=== PATIENT | female | born 1995 | race Caucasian/White ===

== ENCOUNTER 2018-07-11 20:11 | Emergency (ER) | payer SELFPAY ==
[~2018-07-11] VITALS: Ht 160 cm; Wt 77.1 kg
[~2018-07-11 20:11] MED LIST: METR500T PO; SULF1TAB24 PO
[2018-07-11 23:10] LABS: BILIRUBIN,URINE NEGATIVE (NEG); CLARITY,URINE CLEAR; COLOR,URINE YELLOW; NITRITE,URINE NEGATIVE (NEG); PH,URINE 5.5; PROTEIN,URINE NEGATIVE (NEG-TRACE); UROBILINOGEN,URINE 0.2 mg/dL (0.2 mg/dL)
[2018-07-11 23:15] LABS: SQUAMOUS EPITHELIAL CELL,UR MANY /LPF
[2018-07-11 23:16] LABS: BACTERIA,URINE MANY /HPF (0-FEW); RBC,URINE 0 /HPF (0-2)
--- NOTE | 2018-07-11 23:17 | PHYS DOC ---
Past Medical History Past Medical History: No Pertinent History, Bipolar Past Surgical History: Other Smoking: Less than 1pk/day Alcohol Use: Occasionally Drug Use: Marijuana Adult General Chief Complaint Chief Complaint: NAUSEA/VOMITING HPI HPI Patient is a 22 year old female who presents with nausea and vomiting. She notes these symptoms for the past week. She notes that she vomits at least once a day. She notes that the vomit is nonbilious and nonbloody. States the last time was today while brushing her teeth. She also endorses constipation and slight diffuse abdominal discomfort. She has not tried anything to help with the symptoms, but notes that eating and stress make the symptoms worse. She denies any chest pain, shortness of breath, headache, or dizziness. She has had to take time off of work and requires a note to go back to work. She denies any recent dietary changes, travel, or sick contacts. Her LMP was 2 weeks ago. Review of Systems Review of Systems Constitutional: Denies fever or chills [] Eyes: Denies change in visual acuity, redness, or eye pain [] HENT: Denies nasal congestion or sore throat [] Respiratory: Denies cough or shortness of breath [] Cardiovascular: No additional information not addressed in HPI [] GI: Notes abdominal discomfort, nausea, vomiting, constipation; Denies bloody stools or diarrhea [] : Denies dysuria or hematuria [] Musculoskeletal: Denies back pain or joint pain [] Integument: Denies rash or skin lesions [] Neurologic: Denies headache, focal weakness or sensory changes [] Complete systems were reviewed and found to be within normal limits, except as documented in this note. Family History Family History Father- diabetes, bipolar disorder Current Medications Current Medications Current Medications Medications (Trade) Dose Ordered Sig/[facility] Start Time Stop Time Status Last Admin Dose Admin Famotidine (Pepcid Vial) 20 mg 1X ONCE 07/11/18 23:30 07/11/18 23:31 DC 07/11/18 23:19 20 MG Ketorolac Tromethamine (Toradol 30mg Vial) 15 mg 1X ONCE 07/11/18 23:30 07/11/18 23:31 DC 07/11/18 23:19 15 MG Sodium Chloride 1,000 ml @ 1,000 mls/hr 1X ONCE 07/11/18 23:30 07/12/18 00:24 DC 07/11/18 23:19 1,000 MLS/HR Allergies Allergies Allergies Coded Allergies Type Severity Reaction Last Updated Verified No Known Drug Allergies 05/09/16 No Physical Exam Physical Exam Constitutional: Well developed, well nourished, no acute distress, non-toxic appearance. [] HENT: Normocephalic, atraumatic, oropharynx moist, no oral exudates, nose normal. [] Eyes: conjunctiva normal, no discharge. [] Neck: Normal range of motion, no tenderness, supple, no meningismus. [] Cardiovascular: Heart rate regular rhythm, no murmur [] Lungs & Thorax: Bilateral breath sounds clear to auscultation [] Abdomen: Bowel sounds normal, soft, slight tenderness to palpation diffusely[] Skin: Warm, dry, no erythema, no rash. [] Back: No tenderness, no CVA tenderness. [] Extremities: No tenderness, ROM intact, no edema. [] Neurologic: Alert and oriented X 3, normal motor function, normal sensory function, no focal deficits noted. [] Psychologic: Affect normal, judgement normal, mood normal. [] Current Patient Data Vital Signs Vital Signs Date Time Temp Pulse Resp B/P (MAP) Pulse Ox O2 Delivery O2 Flow Rate FiO2 07/12/18 00:00 84 18 120/73 (89) 99 07/11/18 23:00 98.3 Room Air 98.3 Lab Values Laboratory Tests Test 07/11/18 21:46 07/11/18 22:45 07/11/18 23:15 Urine Collection Type Unknown Urine Color Yellow Urine Clarity Clear Urine pH 5.5 Urine Specific [place] 1.025 Urine Protein Negative mg/dL (NEG-TRACE) Urine Glucose (UA) Negative mg/dL (NEG) Urine Ketones (Stick) Negative mg/dL (NEG) Urine Blood Negative (NEG) Urine Nitrite Negative (NEG) Urine Bilirubin Negative (NEG) Urine Urobilinogen Dipstick 0.2 mg/dL (0.2 mg/dL) Urine Leukocyte Esterase Trace (NEG) Urine RBC 0 /HPF (0-2) Urine WBC 1-4 /HPF (0-4) Urine Squamous Epithelial Cells Many /LPF Urine Bacteria Many /HPF (0-FEW) Urine Mucus Mod /LPF POC Urine HCG, Qualitative Hcg negative (Negative) White Blood Count 8.5 x10^3/uL (4.0-11.0) Red Blood Count 4.53 x10^6/uL (3.50-5.40) Hemoglobin 13.9 g/dL (12.0-15.5) Hematocrit 40.1 % (36.0-47.0) Mean Corpuscular Volume 89 fL (79-100) Mean Corpuscular Hemoglobin 31 pg (25-35) Mean Corpuscular Hemoglobin Concent 35 g/dL (31-37) Red Cell Distribution Width 13.1 % (11.5-14.5) Platelet Count 320 x10^3/uL (140-400) Neutrophils (%) (Auto) 64 % (31-73) Lymphocytes (%) (Auto) 24 % (24-48) Monocytes (%) (Auto) 11 % (0-9) H Eosinophils (%) (Auto) 1 % (0-3) Basophils (%) (Auto) 0 % (0-3) Neutrophils # (Auto) 5.4 x10^3uL (1.8-7.7) Lymphocytes # (Auto) 2.0 x10^3/uL (1.0-4.8) Monocytes # (Auto) 0.9 x10^3/uL (0.0-1.1) Eosinophils # (Auto) 0.1 x10^3/uL (0.0-0.7) Basophils # (Auto) 0.0 x10^3/uL (0.0-0.2) Sodium Level 143 mmol/L (136-145) Potassium Level 3.5 mmol/L (3.5-5.1) Chloride Level 105 mmol/L (98-107) Carbon Dioxide Level 29 mmol/L (21-32) Anion Gap 9 (6-14) Blood Urea Nitrogen 13 mg/dL (7-20) Creatinine 0.8 mg/dL (0.6-1.0) Estimated GFR (Cockcroft-Gault) 90.5 BUN/Creatinine Ratio 16 (6-20) Glucose Level 114 mg/dL (70-99) H Calcium Level 9.4 mg/dL (8.5-10.1) Magnesium Level 1.9 mg/dL (1.8-2.4) Total Bilirubin 0.3 mg/dL (0.2-1.0) Aspartate Amino Transferase (AST) 19 U/L (15-37) Alanine Aminotransferase (ALT) 28 U/L (14-59) Alkaline Phosphatase 86 U/L (46-116) Total Protein 7.9 g/dL (6.4-8.2) Albumin 4.0 g/dL (3.4-5.0) Albumin/Globulin Ratio 1.0 (1.0-1.7) Lipase 146 U/L (73-393) Laboratory Tests 07/11/18 23:15 Laboratory Tests 07/11/18 23:15 EKG EKG [] Radiology/Procedures Radiology/Procedures [] Course & Med Decision Making Course & Med Decision Making Patient is a 22 year old female who presents with nausea and vomiting. Pertinent labs and imaging studies were reviewed (see chart for details) and were found to be unremarkable. The etiology of her symptoms is likely viral. Patient was given fluids, famotidine and Ketorolac to help alleviate her symptoms. Patient will be given an excuse letter for work, as requested. Patient is stable and will be discharged to home. Patient stable for discharge with outpatient follow-up with PCP. Discussed findings and plan with patient and family, who acknowledge understanding and agreement. Dragon Disclaimer Dragon Disclaimer This electronic medical record was generated, in whole or in part, using a voice recognition dictation system. Departure Departure Impression: Primary Impression: Epigastric pain Disposition: HOME, SELF-CARE Condition: STABLE Referrals: NO PCP (PCP) [place] RIBEIRO MD Patient Instructions: Abdominal Pain (Nonspecific) Scripts Ondansetron (ZOFRAN ODT) 4 Mg Tab.rapdis 1 TAB SL Q8HRS PRN for NAUSEA, #15 TAB Prov: SHUKRI GEE DO 07/11/18 Famotidine (PEPCID) 20 Mg Tablet 20 MG PO BID, #20 TAB Prov: SHUKRI GEE DO 07/11/18 SHUKRI GEE DO Jul 11, 2018 23:17
[2018-07-11 23:22] LABS: BASO % 0 % (0-3); EOS # 0.1 x10^3/uL (0.0-0.7); EOS % 1 % (0-3); HEMATOCRIT 40.1 % (36.0-47.0); HEMOGLOBIN 13.9 g/dL (12.0-15.5); LYMPH % 24 % (24-48); MEAN CORPUSCULAR HEMOGLOBIN 31 pg (25-35); MEAN CORPUSCULAR HGB CONC 35 g/dL (31-37); MEAN CORPUSCULAR VOLUME 89 fL (79-100); MONO # 0.9 x10^3/uL (0.0-1.1); MONO % 11 % (0-9); NEUT # 5.4 x10^3uL (1.8-7.7); NEUT % 64 % (31-73); PLATELET COUNT 320 x10^3/uL (140-400); RED BLOOD COUNT 4.53 x10^6/uL (3.50-5.40); RED CELL DISTRIBUTION WIDTH 13.1 % (11.5-14.5); WHITE BLOOD COUNT 8.5 x10^3/uL (4.0-11.0)
[2018-07-11] MEDS ORDERED: KETOROLAC 30 MG/ML VIAL. IV ONE (23:30)
[2018-07-11] MEDS ORDERED: FAMOTIDINE 20 MG/2 ML VIAL IVP ONE (23:30)
[2018-07-11] MEDS ORDERED: IV NORMAL SALINE 1000ML BAG 1,000 ML IV ONE (23:30)
[2018-07-11 23:33] LABS: CALCIUM 9.4 mg/dL (8.5-10.1); CREATININE 0.8 mg/dL (0.6-1.0); GFR 90.5; POTASSIUM 3.5 mmol/L (3.5-5.1)
[2018-07-11 23:38] LABS: MAGNESIUM 1.9 mg/dL (1.8-2.4); TOTAL BILIRUBIN 0.3 mg/dL (0.2-1.0); TOTAL PROTEIN 7.9 g/dL (6.4-8.2)
[2018-07-11] MEDS ORDERED: FAMO-63 PO (23:50)
[2018-07-11] MEDS ORDERED: ONDA4TAB10 SL (23:50)
[2018-07-12] VITALS: BP 120/73
== END 2018-07-12 00:07 | disposition home or self-care (01) ==
LOC: ER 20:11
DX: R10.13 Epigastric pain (principal); F17.210 Nicotine dependence, cigarettes, uncomplicated
CPT/HCPCS: 36415; 80053; 81001; 81025; 83690; 83735; 85025; 87086; 96361; 96374; 96375; 99284; J1885; J7030; S0028

== ENCOUNTER 2019-10-22 15:43 | Emergency (ER) | payer OTHER ==
[~2019-10-22] VITALS: Ht 160 cm; Wt 77.1 kg
[~2019-10-22 15:43] MED LIST changes: +FAMO-63 PO; +ONDA4TAB10 SL
[2019-10-22] MEDS: ONDANSETRON PF 4 MG/2 ML VIAL. IV ONE (16:25)
[2019-10-22] MEDS: LIDO:MAALOX 1:1 20 ML SINGLE DOSE. SWSW ONE (16:25)
[2019-10-22] MEDS: IV NORMAL SALINE 1000ML BAG 1,000 ML IV ONE (16:25)
[2019-10-22 16:35] LABS: BASO % 0 % (0-3); EOS # 0.1 x10^3/uL (0.0-0.7); EOS % 1 % (0-3); HEMATOCRIT 37.9 % (36.0-47.0); HEMOGLOBIN 13.2 g/dL (12.0-15.5); LYMPH # 0.3 x10^3/uL (1.0-4.8); LYMPH % 4 % (24-48); MEAN CORPUSCULAR HEMOGLOBIN 31 pg (25-35); MEAN CORPUSCULAR HGB CONC 35 g/dL (31-37); MEAN CORPUSCULAR VOLUME 88 fL (79-100); MONO # 0.9 x10^3/uL (0.0-1.1); MONO % 13 % (0-9); NEUT # 5.8 x10^3/uL (1.8-7.7); NEUT % 83 % (31-73); PLATELET COUNT 236 x10^3/uL (140-400); RED BLOOD COUNT 4.32 x10^6/uL (3.50-5.40); RED CELL DISTRIBUTION WIDTH 13.1 % (11.5-14.5)
[2019-10-22 16:49] LABS: CALCIUM 8.6 mg/dL (8.5-10.1); CREATININE 0.6 mg/dL (0.6-1.0); GFR 123.9; POTASSIUM 3.6 mmol/L (3.5-5.1)
[2019-10-22 16:54] LABS: BILIRUBIN,URINE NEGATIVE (NEG); CLARITY,URINE CLOUDY; COLOR,URINE YELLOW; NITRITE,URINE NEGATIVE (NEG); PH,URINE 5.5; PROTEIN,URINE NEGATIVE (NEG-TRACE); UROBILINOGEN,URINE 0.2 mg/dL (0.2 mg/dL)
[2019-10-22 16:55] LABS: ALBUMIN 3.3 g/dL (3.4-5.0); ALBUMIN/GLOBULIN RATIO 0.9 (1.0-1.7); TOTAL BILIRUBIN 0.2 mg/dL (0.2-1.0); TOTAL PROTEIN 6.8 g/dL (6.4-8.2)
[2019-10-22] MEDS ORDERED: diphenhydrAMINE 50 MG/ML VIAL ONE (16:58)
[2019-10-22 17:03] LABS: RBC,URINE 0 /HPF (0-2); WBC,URINE 20-40 /HPF (0-4)
[2019-10-22] MEDS: diphenhydrAMINE 50 MG/ML VIAL IVP ONE (17:03)
[2019-10-22 17:04] LABS: BACTERIA,URINE MANY /HPF (0-FEW); SQUAMOUS EPITHELIAL CELL,UR MANY /LPF
--- NOTE | 2019-10-22 17:10 | PHYS DOC ---
Past Medical History Past Medical History: Bipolar (ANIKA JEFFERSON APRN) Past Surgical History: No Surgical History, Other (ANIKA JEFFERSON APRN) Alcohol Use: None Drug Use: Marijuana (ANIKA JEFFERSON APRN) Adult General Chief Complaint Chief Complaint: VOMITING IN HPI HPI Patient is a 24 year old female who presents to the emergency department with complaints of epigastric pain that radiates through to her back. Patient currently rates her pain a 7 out of 10 on pain scale and describes it as a stabbing pressure. She denies any alleviating factors. She denies any fever, cough, shortness of breath, dysuria, increased urinary frequency, hematuria, irregular vaginal discharge, vaginal bleeding, or vaginal odor, or diarrhea. Patient states she is currently , her last menstrual cycle was on July 05, 2019, her due date is on April 12, 2020. She is 2 para 0 and had 1 miscarriage at 6 weeks previously. She denies any use of tobacco al cohol or illicit drugs. In addition, pt complains of a diffuse frontal headache. She denies any dizziness, vision changes, neck pain, weakness, numbness, or tingling. All other ROS is neg unless otherwise noted in HPI. (ANIKA JEFFERSON APRN) Review of Systems Review of Systems See Above (ANIKA JFEFERSON APRN) Current Medications Current Medications Current Medications Medications (Trade) Dose Ordered Sig/[facility] Start Time Stop Time Status Last Admin Dose Admin Ceftriaxone Sodium (Rocephin) 1 gm 1X ONCE 10/22/19 17:30 10/22/19 17:31 DC 10/22/19 17:58 1 GM Diphenhydramine HCl (Benadryl) 50 mg STK-MED ONCE 10/22/19 16:58 10/22/19 16:58 DC Multi-Ingredient Mouthwash/Gargle (Gi Cocktail) 20 ml 1X ONCE 10/22/19 16:15 10/22/19 16:16 DC 10/22/19 16:25 20 ML Ondansetron HCl (Zofran) 4 mg 1X ONCE 10/22/19 16:00 10/22/19 16:01 DC 10/22/19 16:25 4 MG Sodium Chloride 1,000 ml @ 1,000 mls/hr 1X ONCE 10/22/19 16:00 10/22/19 16:59 DC 10/22/19 16:25 1,000 MLS/HR (SHUKRI GEE DO) Allergies Allergies Allergies Coded Allergies Type Severity Reaction Last Updated Verified No Known Drug Allergies 05/09/16 No (SHUKRI GEE DO) Physical Exam Physical Exam See Above Constitutional: Well developed, well nourished, no acute distress, non-toxic appearance. [] HENT: Normocephalic, atraumatic, bilateral external ears normal, nose normal. [] Eyes: PERRLA, EOMI, conjunctiva normal, no discharge. [] Neck: Normal range of motion, no stridor. [] Cardiovascular:Heart rate regular rhythm Lungs & Thorax: Bilateral breath sounds clear to auscultation, Respirations even and unlabored, no retractions, no respiratory distress[] Abdomen: Bowel sounds normal, soft, no tenderness, no masses, no pulsatile masses; palpable fundus midway between pelvis and umbilicus [] Skin: Warm, dry, no erythema, no rash. [] Back: No tenderness, no CVA tenderness. [] Extremities: No cyanosis, ROM intact, no edema. [] Neurologic: Alert and oriented X 3, no focal deficits noted. [] Psychologic: Affect normal, judgement normal, mood normal. [] (ANIKA JEFFERSON APRN) Current Patient Data Vital Signs Vital Signs Date Time Temp Pulse Resp B/P (MAP) Pulse Ox O2 Delivery O2 Flow Rate FiO2 10/22/19 18:00 110 18 110/62 (78) Room Air 10/22/19 15:47 99.1 97 99.1 (SHUKRI GEE DO) Lab Values Laboratory Tests Test 10/22/19 16:25 10/22/19 16:47 White Blood Count 7.0 x10^3/uL (4.0-11.0) Red Blood Count 4.32 x10^6/uL (3.50-5.40) Hemoglobin 13.2 g/dL (12.0-15.5) Hematocrit 37.9 % (36.0-47.0) Mean Corpuscular Volume 88 fL (79-100) Mean Corpuscular Hemoglobin 31 pg (25-35) Mean Corpuscular Hemoglobin Concent 35 g/dL (31-37) Red Cell Distribution Width 13.1 % (11.5-14.5) Platelet Count 236 x10^3/uL (140-400) Neutrophils (%) (Auto) 83 % (31-73) H Lymphocytes (%) (Auto) 4 % (24-48) L Monocytes (%) (Auto) 13 % (0-9) H Eosinophils (%) (Auto) 1 % (0-3) Basophils (%) (Auto) 0 % (0-3) Neutrophils # (Auto) 5.8 x10^3/uL (1.8-7.7) Lymphocytes # (Auto) 0.3 x10^3/uL (1.0-4.8) L Monocytes # (Auto) 0.9 x10^3/uL (0.0-1.1) Eosinophils # (Auto) 0.1 x10^3/uL (0.0-0.7) Basophils # (Auto) 0.0 x10^3/uL (0.0-0.2) Segmented Neutrophils % 84 % (35-66) H Band Neutrophils % 4 % (0-9) Lymphocytes % 4 % (24-48) L Monocytes % 7 % (0-10) Eosinophils % 1 % (0-5) Toxic Granulation Slight Platelet Estimate Adequate (ADEQUATE) Sodium Level 133 mmol/L (136-145) L Potassium Level 3.6 mmol/L (3.5-5.1) Chloride Level 98 mmol/L (98-107) Carbon Dioxide Level 25 mmol/L (21-32) Anion Gap 10 (6-14) Blood Urea Nitrogen 10 mg/dL (7-20) Creatinine 0.6 mg/dL (0.6-1.0) Estimated GFR (Cockcroft-Gault) 123.9 BUN/Creatinine Ratio 17 (6-20) Glucose Level 87 mg/dL (70-99) Calcium Level 8.6 mg/dL (8.5-10.1) Total Bilirubin 0.2 mg/dL (0.2-1.0) Aspartate Amino Transferase (AST) 29 U/L (15-37) Alanine Aminotransferase (ALT) 37 U/L (14-59) Alkaline Phosphatase 58 U/L (46-116) Total Protein 6.8 g/dL (6.4-8.2) Albumin 3.3 g/dL (3.4-5.0) L Albumin/Globulin Ratio 0.9 (1.0-1.7) L Lipase 101 U/L (73-393) Urine Collection Type Unknown Urine Color Yellow Urine Clarity Cloudy Urine pH 5.5 Urine Specific [place] 1.025 Urine Protein Negative mg/dL (NEG-TRACE) Urine Glucose (UA) 100 mg/dL (NEG) Urine Ketones (Stick) 15 mg/dL (NEG) Urine Blood Negative (NEG) Urine Nitrite Negative (NEG) Urine Bilirubin Negative (NEG) Urine Urobilinogen Dipstick 0.2 mg/dL (0.2 mg/dL) Urine Leukocyte Esterase Large (NEG) Urine RBC 0 /HPF (0-2) Urine WBC 20-40 /HPF (0-4) Urine Squamous Epithelial Cells Many /LPF Urine Bacteria Many /HPF (0-FEW) Urine Mucus Mod /LPF Laboratory Tests 10/22/19 16:25 Laboratory Tests 10/22/19 16:25 (SHUKRI GEE DO) EKG EKG [] (ANIKA JEFFERSON APRN) Radiology/Procedures Radiology/Procedures [] (ANIKA JEFFERSON APRN) Course & Med Decision Making Course & Med Decision Making Pertinent Labs and Imaging studies reviewed. (See chart for details) [] (ANIKA JEFFERSON APRN) Dragon Disclaimer Dragon Disclaimer This electronic medical record was generated, in whole or in part, using a voice recognition dictation system. (ANIKA JEFFERSON APRN) Departure Departure Impression: Primary Impression: UTI (urinary tract infection) in in second trimester Additional Impressions: Gastroesophageal reflux during in second trimester, antepartum related nausea, antepartum Disposition: 01 HOME, SELF-CARE Condition: STABLE Referrals: NO PCP (PCP) Patient Instructions: Diet for Gastroesophageal Reflux Disease, Adult, [id number], Nausea, Adult, [id number], - Urinary Tract Infection Additional Instructions: Fill prescriptions and use them as directed. Recommend clear fluids for the next 24 hours. Then you may advance to bland foods such as bananas, rice, applesauce, and dry toast. Follow the diet instructions provided. Increase clear fluids. Recommend TUMS as needed for epigastric pain. Follow-up with your primary care doctor in the next 1-2 days. Return to the emergency room if your symptoms worsen. Scripts Cephalexin (CEPHALEXIN) 500 Mg Capsule 1 CAP PO BID for 7 Days, #14 CAP 0 Refills Prov: ANIKA JEFFERSON APRN 10/22/19 Ondansetron (ONDANSETRON ODT) 4 Mg Tab.rapdis 1 TAB PO PRN Q6-8HRS PRN for NAUSEA/VOMITING for 4 Days, #16 TAB 0 Refills Prov: ANIKA JEFFERSON APRN 10/22/19 Attending Signature Attending Signature I have reviewed the PA/CLIENT REPORTING ASSOCIATE's note and plan of care. I was available for consultation as needed during the patient's visit in the emergency department. I agree with the clinical impression, plan, and disposition. (SHUKRI GEE DO) Problem Qualifiers ANIKA JEFFERSON APRN Oct 22, 2019 17:10 SHUKRI GEE DO Oct 23, 2019 11:25
[2019-10-22 17:11] LABS: % BANDS 4 % (0-9); % EOS 1 % (0-5); % LYMPHS 4 % (24-48); % MONOS 7 % (0-10); % SEGS 84 % (35-66)
[2019-10-22 17:15] LABS: PLT ESTIMATE ADEQUATE (ADEQUATE); TOXIC GRANULATION SLIGHT
[2019-10-22] MEDS: cefTRIAXone IV Push 1 GM VIAL. IVP ONE (17:58)
[2019-10-22 18:00] VITALS: BP 110/62
[2019-10-22] MEDS ORDERED: ONDA4TAB12 PO (18:01)
[2019-10-22] MEDS ORDERED: CEPH500C PO (18:01)
== END 2019-10-22 18:05 | disposition home or self-care (01) ==
LOC: ER 15:43
DX: O23.42 Unspecified infection of urinary tract in pregnancy, second trimester (principal); O99.612 Diseases of the digestive system complicating pregnancy, second trimester; K21.9 Gastro-esophageal reflux disease without esophagitis; R11.0 Nausea; Z3A.00 Weeks of gestation of pregnancy not specified
CPT/HCPCS: 36415; 80053; 81001; 83690; 85007; 85025; 87086; 96374; 96375; 99285; J0696; J1200; J2405; J7030

== ENCOUNTER → 2019-11-21 | Outpatient (CLI) | payer OTHER ==
[2019-10-22 18:00] VITALS: BP 110/62
[~2019-11-21] MED LIST changes: +CEPH500C PO; +ONDA4TAB12 PO
--- NOTE | 2019-11-21 17:14 | RAD ---
PREG MORE THAN OR EQ TO 14 WKS History: Evaluate size and dates Comparison: None. Findings: Multiple sonographic images of the uterus are submitted. Cervix measured 3.6 cm in length. There is a single intrauterine fetus in breech presentation. Subjectively amniotic fluid volume is within normal limits. There is demonstrable cardiac activity 145 bpm. Submitted four-chamber view of the heart is limited due to obliquity of submitted image. There is no obvious demonstrable abnormality of the visualized spine. stomach is visualized. Cerebellum measured 2.12 cm. Cisterna magna measured 0.45 cm. 2 kidneys were visualized. 2 upper and lower extremities were visualized. There is anterior placenta. There is midline cord insertion. Reportedly a three-vessel cord was believed to be visualized by technologist although not well-demonstrated on submitted images. urinary bladder is not well-demonstrated on this exam. Maternal adnexal regions are not demonstrated. Biometry data are as follows: Biparietal diameter 4.65 cm corresponds 20 weeks 0 days Head circumference 17.3 cm corresponds with 19 weeks 6 days Abdominal circumference 14.31 cm corresponds with 19 weeks 5 days Femur length 2.93 cm corresponds with 19 weeks 0 days Estimated weight 292 g +/- 43 g HC/AC ratio 1.21 within normal limits. Adjusted ultrasound age 19 weeks 5 days with estimated delivery date of 04/11/2020 LMP age 19 weeks 4 days with estimated delivery date of 04/12/2020 Impression: 1. There is a single viable intrauterine fetus in breech presentation, limitations of visualization of the anatomy as stated. Adjusted ultrasound age is 19 weeks 5 days with estimated delivery date of 04/11/2020. Electronically signed by: Antonino Paz MD (11/21/2019 5:11 PM) [id number]
== END | disposition home or self-care (01) ==
LOC: US 15:56
PROVIDERS: ATTEND Obstetrics & Gynecology
DX: O32.1XX0 Maternal care for breech presentation, not applicable or unspecified (principal); O26.842 Uterine size-date discrepancy, second trimester; O21.0 Mild hyperemesis gravidarum; Z3A.19 19 weeks gestation of pregnancy
CPT/HCPCS: 76805